=== PATIENT | female | born 2000 ===

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

== ENCOUNTER 2019-01-19 11:32 | Emergency (ER) | payer MEDICAID ==
[2019-01-19 11:32] VITALS: BMI 29.6
[2019-01-19 11:41] VITALS: RESP 18; TEMP 97.6; O2SAT 100
[2019-01-19 12:01] LABS: URINE BILIRUBIN NEGATIVE (NEGATIVE); URINE BLOOD NEGATIVE (NEGATIVE); URINE GLUCOSE (UA) NEGATIVE (NEGATIVE); URINE LEUKOCYTE ESTERASE TRACE Leu/uL (NEGATIVE); URINE PROTEIN NEGATIVE mg/dL (<30 mg/dL); URINE UROBILINOGEN 0.2 E.U./dL (<1 E.U./dL)
[2019-01-19 12:02] LABS: URINE APPEARANCE CLEAR (CLEAR); URINE COLOR YELLOW (YELLOW)
[2019-01-19 12:04] LABS: URINE RBC 0 - 2 /hpf (0-2)
[2019-01-19 12:05] LABS: URINE BACTERIA FEW /hpf
[2019-01-19] MEDS ORDERED: Sodium Chloride 0.9% 1,000 ML IV STA (12:24)
--- NOTE | 2019-01-19 12:32 | ED PDOC ---
Arrival/HPI - General Chief Complaint: Abdominal Pain Time Seen by Provider: 01/19/19 11:46 Historian: Patient - History of Present Illness Narrative History of Present Illness (Text): 01/19/19 12:31 A 18 year old female presents to the emergency department complaining of RLQ abdominal pain for 3 days. Patient reports also experiencing loss of appetite due to pain and associated nausea. Patient denies any vomiting, diarrhea, dy suria, abnormal vaginal discharge/bleeding, fever, or any other complaints at this time. Past Medical History - Provider Review Nursing Documentation Reviewed: Yes - Past History Past History: No Previous - Tetanus Immunization Tetanus Immunization: Up to Date - Psychiatric Hx Substance Use: No Family/Social History - Physician Review Nursing Documentation Reviewed: Yes Family/Social History: No Known Family HX Smoking Status: Never Smoked Hx Alcohol Use: No Hx Substance Use: No Allergies/Home Meds Allergies/Adverse Reactions: Allergies No Known Allergies Allergy (Verified 01/19/19 11:41) Home Medications: Home Meds Medication Instructions Recorded Confirmed No Known Home Med 01/19/19 01/19/19 Review of Systems - Physician Review All systems were reviewed & negative as marked: Yes - Review of Systems Constitutional: absent: Fevers Gastrointestinal: Abdominal Pain (RLQ), Nausea. absent: Vomiting Genitourinary Female: absent: Dysuria, Vaginal Bleeding, Vaginal Discharge Physical Exam Vital Signs Reviewed: Yes Vital Signs Temp Pulse Resp BP Pulse Ox 01/19/19 11:39 97.6 F 73 18 100/69 100 Temperature: Afebrile Blood Pressure: Normal Pulse: Regular Respiratory Rate: Normal Appearance: Positive for: Well-Appearing, Non-Toxic, Comfortable Pain Distress: None Mental Status: Positive for: Alert and Oriented X 3 - Systems Exam Head: Present: Atraumatic, Normocephalic Pupils: Present: PERRL Extroacular Muscles: Present: EOMI Conjunctiva: Present: Normal Mouth: Present: Moist Mucous Membranes Neck: Present: Normal Range of Motion Respiratory/Chest: Present: Clear to Auscultation, Good Air Exchange. No: Respiratory Distress, Accessory Muscle Use Cardiovascular: Present: Regular Rate and Rhythm, Normal S1, S2. No: Murmurs Abdomen: Present: Tenderness (minimal RLQ tenderness). No: Distention, Peritoneal Signs, Rebound, Guarding Back: Present: Normal Inspection Upper Extremity: Present: Normal Inspection. No: Cyanosis, Edema Lower Extremity: Present: Normal Inspection. No: Edema Neurological: Present: GCS=15, CN II-XII Intact, Speech Normal Skin: Present: Warm, Dry, Normal Color. No: Rashes Psychiatric: Present: Alert, Oriented x 3, Normal Insight, Normal Concentration Medical Decision Making ED Course and Treatment: 01/19/19 12:33 Impression: 18 year old female RLQ abdominal pain and associated nausea. Plan: -- Labs -- POC Urine Test -- Toradol -- IV Fluids -- Urine Culture -- Reassess and disposition Progress Notes: Patient in no distress throughout ED course. Labs done and were unremarkable. CT done as patient with anorexia, nausea, and RLQ pain. CT results noted and discussed with patient. Advised high fiber diet and OTC stool softeners as needed for constipation. Return to the ED for any new or worsening symptoms. - Lab Interpretations Lab Results: Urine Color Yellow (YELLOW) 01/19/19 11:45 Urine Appearance Clear (CLEAR) 01/19/19 11:45 Urine pH 6.0 (4.7-8.0) 01/19/19 11:45 Ur Specific Patterson 1.025 (1.005-1.035) 01/19/19 11:45 Urine Protein Negative mg/dL (<30 mg/dL) 01/19/19 11:45 Urine Glucose (UA) Negative mg/dL (NEGATIVE) 01/19/19 11:45 Urine Ketones Negative mg/dL (NEGATIVE) 01/19/19 11:45 Urine Blood Negative (NEGATIVE) 01/19/19 11:45 Urine Nitrate Negative (NEGATIVE) 01/19/19 11:45 Urine Bilirubin Negative (NEGATIVE) 01/19/19 11:45 Urine Urobilinogen 0.2 E.U./dL (<1 E.U./dL) 01/19/19 11:45 Ur Leukocyte Esterase Trace Blas/uL (NEGATIVE) H 01/19/19 11:45 Urine RBC 0 - 2 /hpf (0-2) 01/19/19 11:45 Urine WBC 2 - 5 /hpf (0-6) 01/19/19 11:45 Ur Epithelial Cells 4 - 5 /hpf (0-5) 01/19/19 11:45 Urine Bacteria Few /hpf (NONE) 01/19/19 11:45 - RAD Interpretation Narrative RAD Interpretations (Text): Date of service: 01/19/2019 PROCEDURE: CT Abdomen and Pelvis with contrast HISTORY: RLQ pain COMPARISON: None. TECHNIQUE: Following the intravenous administration of iodinated contrast material, a CT examination of the abdomen and pelvis was performed from the domes of the diaphragms to the symphysis pubis with reformatted datasets provided in axial, sagittal and coronal planes. Oral contrast was not administered as per referring physician request. Contrast dose: Omnipaque 350, 96 cc Radiation dose: Total exam DLP = 371.12 mGy-cm. This CT exam was performed using one or more of the following dose reduction techniques: Automated exposure control, adjustment of the mA and/or kV according to patient size, and/or use of iterative reconstruction technique. FINDINGS: LOWER THORAX: Unremarkable. LIVER: Diminished attenuation of the liver is indicates diffuse fatty infiltration. No mass or definite intrahepatic biliary dilatation is identified. GALLBLADDER AND BILE DUCTS: Unremarkable. PANCREAS: Unremarkable. No gross lesion or ductal dilatation. SPLEEN: Unremarkable. ADRENALS: Unremarkable. No mass. KIDNEYS AND URETERS: Unremarkable. No hydronephrosis. No solid mass. VASCULATURE: Unremarkable. No aortic aneurysm. No aortic atherosclerotic calcification or mural plaque present. BOWEL: No bowel obstruction, perienteric or pericolic reactive change. Prominent retained fecal material seen throughout the colon suggesting constipation. Clinically correlate further. No gross mural thickening identifiable. Lack of oral contrast limits evaluation of the gastrointestinal tract. The stomach is collapsed. APPENDIX: Normal appendix. PERITONEUM: Unremarkable. No free fluid. No free air. LYMPH NODES: Unremarkable. No enlarged lymph nodes. BLADDER: Unremarkable. REPRODUCTIVE: Unremarkable. BONES: No acute fracture. OTHER FINDINGS: None. IMPRESSION: 1. Findings most compatible with probable constipation. Please see discussion above. No bowel obstruction, measure edema, ascites or free intra peritoneal gas collection identified. 2. Hepatic steatosis. 3. Normal appearing appendix. Ground Support Equipment Mechanic: Radiologist - Medication Orders Current Medication Orders: Sodium Chloride (Sodium Chloride 0.9%) 1,000 mls @ 999 mls/hr IV .Q1H1M STA Stop: 01/19/19 13:24 Ketorolac Tromethamine (Toradol) 30 mg IVP STAT STA Stop: 01/19/19 12:26 - Scribe Statement The provider has reviewed the documentation as recorded by the Colin Orozco Provider Scribe Attestation: All medical record entries made by the Scribe were at my direction and personally dictated by me. I have reviewed the chart and agree that the record accurately reflects my personal performance of the history, physical exam, medical decision making, and the department course for this patient. I have also personally directed, reviewed, and agree with the discharge instructions and disposition. Disposition/Present on Arrival - Present on Arrival Any Indicators Present on Arrival: No History of DVT/PE: No History of Uncontrolled Diabetes: No Urinary Catheter: No History of Decub. Ulcer: No History Surgical Site Infection Following: None - Disposition Have Diagnosis and Disposition been Completed?: Yes Diagnosis: Abdominal pain, Constipation Disposition: HOME/ ROUTINE Disposition Time: 14:16 Patient Plan: Discharge Condition: GOOD Discharge Instructions (ExitCare): Constipation, Adult (DC) Additional Instructions: YAJAIRA EVANS, thank you for letting us take care of you today. Your provider was Josey Burton MD and you were treated for abdominal pain. The emergency medical care you received today was directed at your acute symptoms. If you were prescribed any medication, please fill it and take as directed. It may take several days for your symptoms to resolve. Return to the Emergency Department if your symptoms worsen, do not improve, or if you have any other problems. Please contact your doctor or call one of the physicians/clinics you have been referred to that are listed on the Patient Visit Information form that is included in your discharge packet. Bring any paperwork you were given at discharge with you along with any medications you are taking to your follow up visit. Our treatment cannot replace ongoing medical care by a primary care provider outside of the emergency department. Thank you for allowing the [facility] team to be part of your care today. If you had an X-Ray or CT scan: A Radiologist will review the ED reading if any change in treatment is needed we will contact you. If you had a blood, urine, or wound culture: It will take several days for the results, if any change in treatment is needed we will contact you. If you had an STI test: It will take 48 hours for the results. Please call after 1 week if you have not heard back. Referrals: Betsy Johnson MD [Primary Care Provider] - Follow up with primary Forms: [employer] (Mongolian), SCHOOL NOTE
[2019-01-19 12:39] LABS: BASO # 0.01 K/mm3 (0.0-2.0); BASO % 0.2 % (0.0-3.0); EOS # 0.1 (0.0-0.7); EOS % 1.4 % (1.5-5.0); HEMOGLOBIN 13.8 g/dL (12.0-16.0); LYMPH # 1.7 (1.2-3.4); LYMPH % 32.4 % (22.0-35.0); MEAN CELL VOLUME 93.8 fl (80.0-105.0); MEAN CORPUSCULAR HEMOGLOBIN 31.7 pg (25.0-35.0); MEAN CORPUSCULAR HGB CONC 33.7 g/dl (31.0-37.0); MEAN PLATELET VOLUME 9.8 fl (7.0-11.0); MONO # 0.3 (0.1-0.6); MONO % 5.3 % (1.0-6.0); RBC 4.36 10^6/uL (3.5-6.1); RED CELL DISTRIBUTION WIDTH 12.5 % (11.5-14.5); WHITE BLOOD COUNT 5.1 10^3/uL (4.5-11.0)
[2019-01-19 12:42] LABS: ALB/GLOB RATIO 1.3 (1.1-1.8); ALBUMIN 4.4 g/dL (3.0-4.8); ALT/SGPT 40 U/L (7-56); AST/SGOT 31 U/L (14-36); BLOOD UREA NITROGEN 20 mg/dL (7-21); CALCIUM 9.9 mg/dL (8.4-10.5); GFR NON-AFRICAN AMERICAN > 60
[2019-01-19] MEDS ORDERED: Iohexol 350 MG/100 ML VIAL ONE (13:10)
[2019-01-19 14:01] VITALS: BP 94/47; PULSE 63
--- NOTE | 2019-01-19 14:14 | CT ---
Date of service: 01/19/2019 PROCEDURE: CT Abdomen and Pelvis with contrast HISTORY: RLQ pain COMPARISON: None. TECHNIQUE: Following the intravenous administration of iodinated contrast material, a CT examination of the abdomen and pelvis was performed from the domes of the diaphragms to the symphysis pubis with reformatted datasets provided in axial, sagittal and coronal planes. Oral contrast was not administered as per referring physician request. Contrast dose: Omnipaque 350, 96 cc Radiation dose: Total exam DLP = 371.12 mGy-cm. This CT exam was performed using one or more of the following dose reduction techniques: Automated exposure control, adjustment of the mA and/or kV according to patient size, and/or use of iterative reconstruction technique. FINDINGS: LOWER THORAX: Unremarkable. LIVER: Diminished attenuation of the liver is indicates diffuse fatty infiltration. No mass or definite intrahepatic biliary dilatation is identified. GALLBLADDER AND BILE DUCTS: Unremarkable. PANCREAS: Unremarkable. No gross lesion or ductal dilatation. SPLEEN: Unremarkable. ADRENALS: Unremarkable. No mass. KIDNEYS AND URETERS: Unremarkable. No hydronephrosis. No solid mass. VASCULATURE: Unremarkable. No aortic aneurysm. No aortic atherosclerotic calcification or mural plaque present. BOWEL: No bowel obstruction, perienteric or pericolic reactive change. Prominent retained fecal material seen throughout the colon suggesting constipation. Clinically correlate further. No gross mural thickening identifiable. Lack of oral contrast limits evaluation of the gastrointestinal tract. The stomach is collapsed. APPENDIX: Normal appendix. PERITONEUM: Unremarkable. No free fluid. No free air. LYMPH NODES: Unremarkable. No enlarged lymph nodes. BLADDER: Unremarkable. REPRODUCTIVE: Unremarkable. BONES: No acute fracture. OTHER FINDINGS: None. IMPRESSION: 1. Findings most compatible with probable constipation. Please see discussion above. No bowel obstruction, measure edema, ascites or free intra peritoneal gas collection identified. 2. Hepatic steatosis. 3. Normal appearing appendix.
== END 2019-01-19 14:29 | disposition home or self-care (01) ==
LOC: ED 11:32
DX: K59.00 Constipation, unspecified (principal); R10.31 Right lower quadrant pain
CPT/HCPCS: 74177; 80053; 81001; 81025; 85025; 87086; 96361; 96374; 99285; J1885; J7030; Q9967